=== PATIENT | female | born 1955 | race Caucasian/White ===

== ENCOUNTER 2022-09-03 20:39 | Emergency (ER) | payer MEDICARE, SELFPAY ==
[2022-09-03 20:40] VITALS: BP 152/86; PULSE 93; RESP 15; TEMP 36.4; O2SAT 99; BMI 21.6
--- NOTE | 2022-09-03 21:03 | RAD_ITS ---
STUDY: X-RAY CHEST REASON FOR EXAM: Female, 66 years old. Adductive cough x1 month and wheezing TECHNIQUE: PA and lateral views of the chest. COMPARISON: None. FINDINGS: Alveolar opacity in the upper right lung consistent with pneumonia or atelectasis. There is no demonstrated pleural abnormality. Normal size heart. Normal mediastinum and zofia. Normal visualized pulmonary arteries. Normal visualized aortic arch and descending thoracic aorta. Normal visualized thoracic spine. Normal visualized ribs, clavicles, and shoulders. There is no demonstrated abnormality of the visualized soft tissue structures of the upper abdomen. RAD/Chest PA and Lateral IMPRESSION: Right upper lobe pneumonia or atelectasis. Correlation with CT the chest with contrast would be useful to exclude right hilar mass or endobronchial lesion. Electronically Signed: Rito Reyes MD at 22:00 EDT ,
--- NOTE | 2022-09-03 21:04 | EX.ED.DYSGE1 ---
HPI History of Present Illness Chief Complaint: Lower Extremity Injury Detail of Chief Complaint: Patient has 2 complaints. Please read HPI narrative Informant: patient Onset/Context/Timing Onset: Weeks (Left ankle pain x1 week) and Month(s) (And factious symptoms x1 month) Context: Sudden Onset Timing: Continuous and Waxes and wanes Quality: Pain in left ankle and productive cough with wheezing Location: Left ankle and respiratory Current Severity: Mild Maximum Severity: Severe Worsened by: Palpation, and weightbearing Relieved by: Nothing Associated Symptoms Associated Symptoms: Swelling since patient has been less mobile. Narrative Narrative: Patient is a 66-year-old woman who is a smoker and has history of COPD. She presents with 2 complaints. The main reason she presents because of right ankle pain. She has no recall of injury. She denies history of gout or pseudogout. She is not on a diuretic. She denies fever, chills night sweats. She denies symptoms of claudication. She localizes the pain to the left ankle area. She states initially her ankle was swollen. She now has swelling of her foot. She denies calf pain. She states she has not been feeling well for a month. She has a smoker. She does have a cough productive of white creamy sputum. She also endorses dyspnea, dyspnea on exertion and wheezing. She has not smoked as much the last day or 2. She also endorses rhinorrhea, congestion postnasal drainage. She denies sore throat. She does complain of bifrontal headache. Denies double vision, blurred vision or loss of vision. She denies photophobia. Denies neck pain or neck stiffness. She denies nausea, vomiting or diarrhea. She denies dysuria, frequency, urgency or hematuria. Prior similar symptoms: Yes (COPD yes ankle pain no) Recent Illness/Hospitalization: No [facility] Medical History COPD (chronic obstructive pulmonary disease) Fibromyalgia Neuropathy Home Medications albuterol sulfate 90 mcg/actuation aerosol inhaler (Ventolin HFA) inhalation 09/03/22 [History Last Taken Unknown] budesonide-formoterol HFA 160 mcg-4.5 mcg/actuation aerosol inhaler (Symbicort) inhalation 09/03/22 [History Last Taken Unknown] cyanocobalamin (vitamin B-12) 1,000 mcg tablet mcg 09/03/22 [History Last Taken Unknown] doxycycline monohydrate 100 mg capsule 100 mg PO BID #10 CAPSULES 09/03/22 [Rx Last Taken Unknown] ergocalciferol (vitamin D2) 1,250 mcg (50,000 unit) capsule (Vitamin D2) 09/03/22 [History Last Taken Unknown] hydrocodone-acetaminophen 5-325mg 5mg-325mg 1 tab PO Q6H PRN PRN Pain 3 days #10 TABLETS 09/03/22 [Rx Last Taken Unknown] prednisone 20 mg tablet 60 mg PO DAILY #15 TABLETS 09/03/22 [Rx Last Taken Unknown] Allergy/AdvReac Type Severity Reaction Status Date / Time meperidine [From Demerol] Allergy Hives Verified 09/03/22 20:44 aspirin [ASA] AdvReac Upset Verified 09/03/22 20:44 Stomach Social History (Updated 09/03/22 @ 21:[address] Britton Rahman MD) household members: none Smoking Status: Current every day smoker tobacco type: cigarettes substance use type: does not use ROS ROS ED Constitutional Constitutional ED: Reports fever(s) and subjective; Denies chills, sweats or weight loss Eyes Eyes: Denies blurry vision, change in vision or diplopia ENT ENT ED: Reports rhinorrhea; Denies ear pain or sore throat Cardiovascular Cardiovascular: Denies chest pain, orthopnea, palpitations, paroxysmal nocturnal dyspnea or racing heartbeat Respiratory/Chest Respiratory/Chest: Reports cough, dyspnea, dyspnea on exertion and sputum; Denies orthopnea or paroxysmal nocturnal dyspnea Gastrointestinal Gastrointestinal: Denies abdominal pain, constipation, diarrhea, melena, nausea or vomiting Genitourinary Genitourinary ED: Denies dysuria, hematuria or urinary frequency Musculoskeletal Musculoskeletal: Reports other Details: Left ankle pain and swelling as documented in the HPI narrative ; Denies arthralgias, back pain, myalgias or neck pain Integumentary Denies Abrasions or rash Neurologic Neurologic: Reports headache(s); Denies paresthesias or weakness Endocrine Endocrinology: Denies cold intolerance or heat intolerance Hematologic/Lymphatic Hematologic/Lymphatic: Reports systems reviewed and no addt'l complaints, except as documented EXAM Physical Exam Const Vital Signs: 09/03/22 20:40 09/03/22 21:13 09/03/22 21:13 Temperature 97.6 F L Temperature Source Temporal Pulse Rate 93 94 Respiratory Rate 15 18 20 H Respiratory Effort Normal Short of Breath Respiratory Depth Normal Respiratory Pattern Normal Normal Blood Pressure 152/86 H Blood Pressure Mean 108 Pulse Ox 99 97 Oxygen Delivery Method Room Air Room Air Positive well developed, cachectic and unkempt; Negative for obese or contractures General Appearance ED: unkempt, well developed, cachectic and NAD; Negative for contractures, cyanotic, diaphoretic or pallor Nutritional Appearance: cachectic; Negative for obese HEENT Reports moist mucous membranes HEENT Narrative: Head is atraumatic no cephalic. Patient reports mild discomfort with tapping over the frontal sinuses. Ears normal. TMs normal. Nares reveal slight clear drainage. Posterior pharynx reveals mild postnasal drainage. Uvula midline. There is no erythema or exudate the posterior pharynx. There is no deviation tongue with protrusion. Eyes PERRL and EOMs intact bilaterally General Eye ED: Negative for pale conjunctiva or scleral icterus Neck no lymphadenopathy, supple and no JVD Neck Narrative: Trachea is midline. There is no inspiratory expiratory stridor. Resp normal respiratory effort and No clear to auscultation bilaterally Auscultation: wheezes expiratory wheezes and throughout (Expiratory wheezing that is scattered throughout.) Cardio regular rate, regular rhythm, S1 normal heart sound, S2 normal heart sound and no murmurs GI normal to inspection, nondistended, normoactive bowel sounds, non-tender, non-distended and no masses; Negative for hepatosplenomegaly Back/Spine no CVA tenderness Thoracic Spine / Upper Back: Negative for thoracic spinal tenderness Lumbar Spine / Lower Back: Negative for lumbar spinal tenderness Extremity Extremity Narrative: There is swelling of the left ankle. There is pain palpation over the lateral aspect of the foot. There is no point tenderness over the base of the fifth metatarsal. There is no fluctuance of the joint. She does complain of pain with palpation over the lateral malleolus. There is minimal pain over the medial malleolus. There is some pain noted over the deltoid ligament. There is no lax with drawer testing. There is no calf tenderness. There is no leg vein distention, palpable cords or pain along the distribution deep venous system. DP and PT pulse are palpable. She does have stigmata of peripheral arterial disease noted. Neuro oriented x3, CN's II-XII intact bilaterally and no sensory deficits noted Motor Exam: strength 5/5 throughout Psych mental status grossly normal Appearance: unkempt Skin no rashes or lesions noted and no wounds General Skin Exam: Negative for jaundice or pallor MDM MDM MDM Narrative Medical decision making narrative: Patient with left ankle pain and swelling. X-ray was ordered per nurse protocol prior to be seen. Agree. Doubt crystal induced or pyogenic arthritis. She had minimal pain with passive dorsi and plantar flexion. There is soft tissue swelling laterally and there is significant tenderness to palpation. Suspected lymphedema and is due to decreased activity because of the pain. Because patient has respiratory symptoms with history of COPD and wheezing chest x-ray was ordered and she was treated with DuoNeb and albuterol. Patient is wheeze free after aerosol treatments. She received 1 DuoNeb and 1 albuterol. Patient was informed that her chest x-ray is abnormal. She was informed that the radiologist recommended a CAT scan. CAT scan with IV contrast was ordered. CT was performed interpreted radiologist. The abnormalities were due to scarring. There is no evidence of pneumonia, mass or endobronchial abnormality. Patient was discharged with prescription for doxycycline and prednisone. Lab Data Attestation: I reviewed the patient's lab results. Lab results narrative: CBC is unremarkable. Comprehensive metabolic panel is. Labs: Laboratory Results - last 24 hr 09/03/22 09/03/22 09/03/22 21:11 21:11 22:10 WBC 6.6 RBC 4.07 L Hgb 15.1 H Hct 43.6 MCV 107.1 H MCH 37.1 H MCHC 34.6 RDW Std Deviation 47.3 H RDW Coeff of [place] 11.9 Plt Count 207 MPV 9.2 Immature Gran % (Auto) 0.500 Neut % (Auto) 66.9 Lymph % (Auto) 18.3 L [place] % (Auto) 11.7 H Eos % (Auto) 2.3 Baso % (Auto) 0.3 Absolute Neuts (auto) 4.4 Absolute Lymphs (auto) 1.20 Nucleated RBC % 0 Sodium 135 L Potassium 4.1 Chloride 101 Carbon Dioxide 27.0 Anion Gap 7 BUN 4 L Creatinine 0.60 Estim Creat Clear Calc 54.32 Est GFR (MDRD) Af Amer 126 Est GFR (MDRD) Non-Af 104 BUN/Creatinine Ratio 6.6 L Glucose 107 H Calcium 9.0 Total Bilirubin 0.60 AST 15 ALT 17 Alkaline Phosphatase 85 Total Protein 7.1 Albumin 3.5 Globulin 3.6 Albumin/Globulin Ratio 1.0 Urine Color Straw Urine Clarity Clear Urine pH 7.0 Ur Specific [place] 1.005 Urine Protein Negative Urine Glucose (UA) Normal Urine Ketones Negative Urine Occult Blood 150 H Urine Nitrite Negative Urine Bilirubin Negative Urine Urobilinogen Normal Ur Leukocyte Esterase 25 H Urine RBC 0 SEEN Urine WBC 0 SEEN Ur Squamous Epith Cells 0-5 SEEN Urine Bacteria RARE Urine Mucus 0 SEEN Radiography Chest X-Ray - ED: 2 View (2 view chest x-ray reveals haziness/infiltrate in the right upper lobe. There appears to be a perihilar mass. Cardiac silhouette and size unremarkable. There is no effusion noted. [place] structures appear normal. Will await interpretation by radiologist. This is independently reviewed and inter) and Read by ED Physician (X-ray of the ankle was obtained. 3 views were obtained. There is lateral soft tissue swelling noted consistent with a ligamentous injury. There is no widening of the mortise. There is no evidence of fracture to the lateral medial malleolus. There is no fracture noted at the base of the fifth me) Diagnostic Testing: Clinical Impression(s) from Imaging Studies Chest X-Ray 09/03/22 21:03 IMPRESSION: Right upper lobe pneumonia or atelectasis. Correlation with CT the chest with contrast would be useful to exclude right hilar mass or endobronchial lesion. Electronically Signed: Rito Reyes MD at 22:00 EDT Reading Location ID and State: [id number] / [employer] Tel , Service support , Ankle X-Ray 09/03/22 21:44 IMPRESSION: No acute fracture or dislocation. Lateral soft tissue swelling consistent with ligamentous injury Electronically Signed: Rito Reyes MD at 21:59 EDT Reading Location ID and State: [id number] / [employer] Tel , Service support , Chest CT 09/03/22 22:07 IMPRESSION: Emphysema with bilateral apical scarring but no pneumonia, atelectasis, nodule, or mass. Electronically Signed: Rito Reyes MD at 22:52 EDT , Discharge Plan Triage Chief Complaint: Lower Extremity Injury ED Provider: Britton Rahman Dx/Rx/DC Orders Clinical Impression: Acute exacerbation of COPD with asthma, Acute exacerbation of chronic bronchitis, Apical lung scarring, Sprain of anterior talofibular ligament of left ankle, Hypertension Instructions: ED COPD Flare, ED Ankle Sprain (Adult) Prescriptions: New hydrocodone-acetaminophen [hydrocodone-acetaminophen] 5-325 mg tablet 1 tab PO Q6H PRN PRN (Reason: Pain) 3 Days Qty: 10 0RF prednisone 20 mg tablet 60 mg PO DAILY Qty: 15 0RF doxycycline monohydrate 100 mg capsule 100 mg PO BID Qty: 10 0RF No Action cyanocobalamin (vitamin B-12) 1,000 mcg tablet Label Comments: take 1 tablet by mouth once daily ergocalciferol (vitamin D2) [Vitamin D2] 1,250 mcg (50,000 unit) capsule Label Comments: take 1 capsule by mouth every week albuterol sulfate [Ventolin HFA] 90 mcg/actuation HFA aerosol inhaler INHALATION Label Comments: inhale 2 puffs INTO THE LUNGS four times a day if needed for wheezing budesonide-formoterol [Symbicort] 160-4.5 mcg/actuation HFA aerosol inhaler INHALATION Label Comments: INHALE TWO PUFFS BY MOUTH AND INTO THE LUNGS TWICE A DAY Primary Care Provider: Roxy Zamudio,Out of Referrals: Roxy Zamudio,Out of [Primary Care Provider] - 3-5 Days Activity Restrictions/Additional Instructions: Take medication as prescribed Apply ice to your left ankle 6-10 times a day Wear a flat soled shoe until you are pain-free Disposition Disposition: Home, Self Care
[2022-09-03 21:13] VITALS: PULSE 94; RESP 18; RESP 20; O2SAT 97
[2022-09-03] MEDS: Ipratropium/Albuterol Sulfate 3 ML AMPUL.NEB INHALATION (21:13)
[2022-09-03 21:17] LABS: Absolute Neutrophil Count 4.4 X10^3/uL (2.0-7.7); Basophil# 0.02 X10^3/uL; Basophil% 0.3 % (0-1); Eosinophil# 0.15 X10^3/uL; Eosinophils% 2.3 % (0-5); Hematocrit 43.6 % (37-47); Hemoglobin 15.1 g/dL (12.0-15.0); Lymphocyte % 18.3 % (19-41); Mean Corp Hgb Conc 34.6 g/dL (32-36); Mean Corpuscular Hgb 37.1 pg (27.0-32.0); Mean Corpuscular Volume 107.1 fL (81-99); Mean Platelet Vol. 9.2 fl (6.2-12.0); Monocyte# 0.77 X10^3/uL; Monocyte% 11.7 % (0-10); NRBC Flagged by Analyzer 0 % (0-5); Neutrophil # 4.39 X10^3/uL (2.7-7.7); Neutrophil % 66.9 % (47-70); Platelet Count 207 K/mm3 (150-450); RBC Distribution Width CV 11.9 % (11.6-14.6); RBC Distribution Width SD 47.3 fl (35.1-43.9); Red Blood Count 4.07 M/mm3 (4.2-5.4); White Blood Count 6.6 K/mm3 (4.4-11.0)
[2022-09-03] MEDS: Albuterol 2.5 MG/3 ML VIAL.NEB. INHALATION (21:21)
[2022-09-03 21:33] LABS: AST(SGOT) 15 U/L (15-37); Alanine Aminotransfer ALT/SGPT 17 U/L (13-56); Albumin, Serum 3.5 g/dL (3.2-5.0); Alkaline Phosphatase 85 U/L (45-117); Anion Gap 7 (5-15); BUN 4 mg/dL (7-18); BUN/Creat Ratio 6.6 RATIO (10-20); Chloride 101 mmol/L (98-107); EST Glomerular Filtration Rate 104 mL/min (>60); Est Glom Filt Rate - Afr Amer 126 mL/min (>60); Estimated Creatinine Clearance 54.32 ml/min; Globulin 3.6 g/dL (2.2-4.2); Glucose 107 mg/dL (74-106); Potassium 4.1 mmol/L (3.5-5.1); Protein, Total 7.1 g/dL (6.4-8.2); Sodium Level 135 mmol/L (136-145)
--- NOTE | 2022-09-03 21:36 | CPS ---
x1 Albuterol given to pt. in ER as well. Pt. politely declined further breathing tx.'s at this time, but she did say she'd notify her nurse if she feels as if she needs additional tx.'s.
--- NOTE | 2022-09-03 21:44 | RAD_ITS ---
STUDY: X-RAY - LEFT ANKLE REASON FOR EXAM: Female, 66 years old. INJURY TECHNIQUE: 3 view(s) of the ankle. COMPARISON: None. FINDINGS: Normal visualized distal tibia and fibula. Normal medial and lateral malleoli. Normal tibiotalar articulation and ankle mortise. Normal visualized talus and calcaneus. The visualized subtalar, talonavicular, calcaneocuboid and tarsal articulations are normal. Lateral soft tissue swelling consistent with ligamentous injury. RAD/Ankle min 3 Views IMPRESSION: No acute fracture or dislocation. Lateral soft tissue swelling consistent with ligamentous injury Electronically Signed: Rito Reyes MD at 21:59 EDT ,
--- NOTE | 2022-09-03 22:07 | CT_ITS ---
INDICATION: Hilar mass, endobronchial mass EXAMINATION: CT CHEST WITH CONTRAST - CT Chest W/ Contrast Injection TECHNIQUE: Helically acquired images were obtained of the chest following IV contrast. A radiation dose optimization technique was used for this scan. IV Contrast dosage and agent: COMPARISON: Chest x-ray earlier today FINDINGS: LUNGS, PLEURA AND LARGE AIRWAYS: Moderate bilateral apical scarring. Mild emphysema with subpleural blebs. No noncalcified nodule or mass. No pleural effusion or thickening. No pneumothorax. THYROID: No thyroid lesions. HEART AND PERICARDIUM: Heart size is normal. No pericardial effusion. VESSELS: Thoracic aorta is not dilated. No aortic dissection. No obvious central pulmonary embolism although this study was not performed with the pulmonary embolism protocol. MEDIASTINUM AND DAVID: No mediastinal or hilar adenopathy. Esophagus is unremarkable. No hiatal hernia. UPPER ABDOMEN: No acute pathology. BONES: No suspicious lytic or blastic abnormality. CT/Chest WITH Contrast IMPRESSION: Emphysema with bilateral apical scarring but no pneumonia, atelectasis, nodule, or mass. Electronically Signed: Rito Reyes MD at 22:52 EDT ,
[2022-09-03 22:17] LABS: Mucous, Urine 0 SEEN /hpf (<or=2+); Red Blood Cells-Urine 0 SEEN /hpf (0-5); White Blood Cells 0 SEEN /hpf (0-5)
[2022-09-03 22:20] LABS: Color, Urine Straw (Yellow); Glucose, Dipstick Normal (Normal); Ketone-Dipstick Negative (Negative); Leukocyte Esterase-Dipstick 25 /ul (Negative); Nitrite-Dipstick Negative (Negative); Occult Blood-Urine 150 /ul (Negative); Protein-Dipstick Negative (Negative); Specific Gravity, Urine 1.005 (1.002-1.030); Urine Bilirubin Dipstick Negative (Negative); Urine Clarity Clear (Clear); Urine Urobilinogen Normal (Normal)
[2022-09-03 22:28] LABS: Bacteria RARE /hpf (None Seen); Squamous Epithelial Cells - UA 0-5 SEEN /hpf (5-10)
[2022-09-03 23:40] VITALS: BP 138/75; PULSE 100; RESP 20; O2SAT 98
== END 2022-09-03 23:46 | disposition home or self-care (01) ==
PROVIDERS: Emergency Provider Emergency Medicine; Visit Provider Emergency Medicine
DX: S93.492A Sprain of other ligament of left ankle, initial encounter (principal); J44.1 Chronic obstructive pulmonary disease with (acute) exacerbation; I10 Essential (primary) hypertension; F17.210 Nicotine dependence, cigarettes, uncomplicated; R09.81 Nasal congestion; M79.89 Other specified soft tissue disorders; Z79.52 Long term (current) use of systemic steroids; X58.XXXA Exposure to other specified factors, initial encounter
CPT/HCPCS: 71046; 71260; 73610; 80053; 81001; 85025; 94640; 99251; 99285; Q9967; A4216; G0463

== ENCOUNTER 2023-01-28 19:50 | Emergency (ER) | payer MEDICARE, SELFPAY ==
[2023-01-28 19:51] VITALS: BP 148/72; PULSE 76; RESP 18; TEMP 36.6; O2SAT 98; BMI 24.5
--- NOTE | 2023-01-28 20:02 | CT_ITS ---
EXAM: CT ANGIOGRAPHY OF THE RIGHT LOWER EXTREMITY WITH INTRAVENOUS CONTRAST CLINICAL INDICATION: right leg pain, swelling after Stent placement TECHNIQUE: Helically acquired angiography images of the right lower extremity with intravenous contrast using angiographic protocol. This CT exam was performed using one or more of the following dose reduction techniques: automated exposure control, adjustment of the mA and/or kV according to patient size, and/or use of iterative reconstruction technique. This report was created using [employer] report generation technology. MIP reconstructed images were created and reviewed. CONTRAST: IV 100mL [id number] COMPARISON: None. FINDINGS: VASCULATURE: RIGHT FEMORAL/POPLITEAL ARTERIES: There is a 5.8 x 3.9 cm low density fluid collection anterior to the right common femoral artery. There is a small amount of gas also present which may represent a postoperative seroma. There is no active bleeding. No occlusion or significant stenosis. RIGHT CALF/FOOT ARTERIES: There is three-vessel runoff to the right ankle. LOWER EXTREMITY: BONES/JOINTS: See above. SOFT TISSUES: Unremarkable. No soft tissue swelling or gas. No radiopaque foreign body. OTHER FINDINGS: There is a patent femoropopliteal graft. CT/CTA LWR EXTR W/O & W/DYE IMPRESSION: Femoral-popliteal graft which is patent. There is a low-density fluid collection in the soft tissues at the level of the right common femoral artery which may represent a seroma. There is no bleeding identified. There is three-vessel runoff to the right ankle. Electronically Signed: Akil Steen MD at 21:53 EST ,
--- NOTE | 2023-01-28 20:04 | EDS_ITS ---
HPI History of Present Illness Chief Complaint: Lower Extremity Injury Detail of Chief Complaint: Right leg pain and swelling Informant: patient Narrative Narrative: Patient presents to the emergency department via EMS with right leg pain and swelling that she noticed again yesterday. Patient states that 2 days ago she was discharged from [facility] where she had surgery for a stent placement to her right leg for history of peripheral artery disease. Patient currently on Xarelto. She denies any fall or injury. Yesterday she started noticing increased pain and increased swelling to the leg. Patient denies chest pain or shortness of breath. Patient rates her pain a 10 out of 10. [facility] Medical History (Updated 01/28/23 @ 22:[address] Sabine Singh, ) COPD (chronic obstructive pulmonary disease) Fibromyalgia GERD (gastroesophageal reflux disease) Neuropathy Other emphysema PAD (peripheral artery disease) PVD (peripheral vascular disease) Skin ulcer of toe of right foot, limited to breakdown of skin Tobacco use disorder Home Medications ergocalciferol (vitamin D2) 1,250 mcg (50,000 unit) capsule (Vitamin D2) 50,000 unit PO QWEEK 09/03/22 [History Last Taken Unknown] albuterol sulfate 90 mcg/actuation aerosol inhaler (Ventolin HFA) 2 puff inhalation 4X/DAY PRN shortness of breath or wheezing 01/04/23 [History Last Taken Unknown] ammonium lactate 12 % lotion 1 applic topical DAILY 01/04/23 [History Last Taken Unknown] budesonide-formoterol HFA 160 mcg-4.5 mcg/actuation aerosol inhaler (Symbicort) 2 puff inhalation BID 01/04/23 [History Last Taken Unknown] cyanocobalamin (vitamin B-12) 1,000 mcg capsule 1,000 mcg PO DAILY 01/04/23 [History Last Taken Unknown] escitalopram oxalate 10 mg tablet (Lexapro) 10 mg PO DAILY 01/04/23 [History Last Taken Unknown] nicotine (polacrilex) 4 mg buccal lozenge 4 mg buccal Q2H PRN nicotine cravings 01/04/23 [History Last Taken Unknown] aspirin 81 mg tablet,delayed release 81 mg PO DAILY 01/09/23 [History Last Taken Unknown] ropinirole 1 mg tablet 1 mg PO QHS 01/09/23 [History Last Taken Unknown] calcium carbonate 500 mg capsule 500 mg PO TID 01/28/23 [History Last Taken Unknown] oxycodone 5 mg tablet 5 mg PO Q8H PRN Pain 01/28/23 [History Last Taken Unknown] rivaroxaban 2.5 mg tablet 2.5 mg PO BID 01/28/23 [History Last Taken Unknown] Allergy/AdvReac Type Severity Reaction Status Date / Time meperidine [From Demerol] Allergy Hives Verified 01/28/23 19:53 ibuprofen AdvReac Intermediate Upset Verified 01/28/23 19:53 Stomach aspirin [ASA] AdvReac Upset Verified 01/28/23 19:53 Stomach Family History (Updated 01/09/23 @ 13:27 by Cat Mendez) Father Cancer lung Mother Cancer Surgical History History of right salpingo-oophorectomy Hx of appendectomy Social History (Updated 01/09/23 @ 13:26 by Cat Mendez) household members: none Smoking Status: Former smoker alcohol intake: current alcohol intake frequency: a few times a month substance use type: does not use caffeine: Yes Type: tea ROS ROS ED Review of Systems ROS Unobtainable: other Constitutional Constitutional ED: Reports lethargy; Denies chills, fever(s), sweats or weight loss Eyes Eyes: Denies blurry vision, change in vision or diplopia ENT ENT ED: Denies rhinorrhea or sore throat Cardiovascular Cardiovascular: Denies chest pain, orthopnea or racing heartbeat Respiratory/Chest Respiratory/Chest: Denies cough, dyspnea, dyspnea on exertion, orthopnea or sputum Gastrointestinal Gastrointestinal: Denies abdominal pain, diarrhea, nausea or vomiting Genitourinary Genitourinary ED: Denies dysuria, hematuria or urinary frequency Musculoskeletal Musculoskeletal: Reports other Details: Right leg pain and swelling ; Denies arthralgias, back pain, myalgias or neck pain Integumentary Denies abscess, Abrasions or rash Neurologic Neurologic: Denies headache(s) or weakness Psychiatric Psychiatric: Denies anxiety, depression or suicidal thoughts Endocrine Endocrinology: Denies polydipsia, polyphagia or polyuria Hematologic/Lymphatic Hematologic/Lymphatic: Denies easy bleeding, easy bruising or lymphadenopathy Allergic/Immunologic Allergic/Immunologic ED: Denies mouth swelling, tongue swelling or urticaria EXAM Physical Exam Const Vital Signs: 01/28/23 19:51 Temperature 97.8 F Temperature Source Oral Pulse Rate 76 Respiratory Rate 18 Blood Pressure 148/72 H Blood Pressure Mean 97 Pulse Ox 98 Oxygen Delivery Method Room Air Positive well nourished and well developed General Appearance ED: well developed and NAD HEENT Reports TM's clear and moist mucous membranes normocephalic and atraumatic; Negative for trauma or tenderness Tympanic Membrane ED: Yes TM's clear Eyes PERRL and EOMs intact bilaterally General Eye ED: Negative for pale conjunctiva or scleral icterus Neck no lymphadenopathy, supple and no JVD General: Negative for tenderness Chest Wall inspection of chest normal and palpation of chest normal Chest: Negative for tenderness Resp normal respiratory effort and clear to auscultation bilaterally Effort and Inspection: Negative for respiratory distress or pain with movement Auscultation: Negative for rhonchi, wheezes or diminished lung sounds Cardio regular rate, regular rhythm, S1 normal heart sound, S2 normal heart sound and no murmurs Peripheral Pulses: pulses 2+ throughout GI normal to inspection, nondistended, normoactive bowel sounds, soft to palpation, non-tender, non-distended and no masses Back/Spine no CVA tenderness and no thoracic nor lumbar tenderness Extremity Extremity Narrative: Right leg-patient has a well-healing incision in the right groin as well as anterior right thigh without evidence of drainage or cellulitic changes. Patient has edema from about mid thigh down to the foot. I am able to palpate a popliteal as well as dorsal pedal and posterior tibial pulse. Foot is pink and warm to the touch. General Extremety ED: Negative for edema General Extremity: Negative for edema Neuro oriented x3, CN's II-XII intact bilaterally, no sensory deficits noted and gait normal Sensorium / Orientation: awake, alert, oriented to person, oriented to place and oriented to time Motor Exam: strength 5/5 throughout and strength abnormal Psych mental status grossly normal Skin no rashes or lesions noted and no wounds MDM MDM MDM Narrative Medical decision making narrative: Patient presents with severe right leg pain after having popliteal bypass at [facility] on 22 January. Since yesterday she has had increasing pain and swelling. I do not have ultrasound available tonight to obtain venous Doppler to rule out DVT. Patient currently anticoagulated on Xarelto. Basic labs were performed CBC with differential which was unremarkable and chemistries which were unremarkable. Patient had a CTA with runoffs of the right lower extremity which did show a patent graft with good runoff all the way down to the ankle. While in the department she was medicated with Dilaudid and Zofran. At this time etiology of her pain is unclear. I discussed case with [facility] and they recommended that we transfer to their emergency department to be evaluated by their vascular surgeons. She will likely require a venous Doppler as well which I cannot get here tonight. Patient will also require further pain control. Patient was accepted by emergency room physician Dr. Saab. The transfer line spoke with Dr. Prater who was on-call for vascular surgery and it was Dr. Prater's recommendation that patient be seen in the emergency department. History & Record Review Discussion w/independent historian: Patient Lab Data Labs: Laboratory Results - last 24 hr 01/28/23 01/28/23 20:10 20:10 WBC 6.0 RBC 3.43 L Hgb 12.2 Hct 35.8 L MCV 104.4 H MCH 35.6 H MCHC 34.1 RDW Std Deviation 46.7 H RDW Coeff of [place] 12.1 Plt Count 243 MPV 9.7 Immature Gran % (Auto) 0.300 Neut % (Auto) 63.3 Lymph % (Auto) 18.7 L [place] % (Auto) 14.5 H Eos % (Auto) 2.7 Baso % (Auto) 0.5 Absolute Neuts (auto) 3.8 Absolute Lymphs (auto) 1.12 Nucleated RBC % 0 Sodium 134 L Potassium 3.7 Chloride 100 Carbon Dioxide 27.0 Anion Gap 7 BUN 5 L Creatinine 0.59 Estim Creat Clear Calc 53.56 Est GFR (MDRD) Af Amer 130 Est GFR (MDRD) Non-Af 107 BUN/Creatinine Ratio 8.5 L Glucose 98 Calcium 8.9 Radiography Diagnostic Testing: Clinical Impression(s) from Imaging Studies Lower Extremity CTA 01/28/23 20:02 IMPRESSION: Femoral-popliteal graft which is patent. There is a low-density fluid collection in the soft tissues at the level of the right common femoral artery which may represent a seroma. There is no bleeding identified. There is three-vessel runoff to the right ankle. Electronically Signed: Akil Steen MD at 21:53 EST , Discharge Plan Triage Chief Complaint: Lower Extremity Injury ED Provider: Sabine Singh Dx/Rx/DC Orders Clinical Impression: Post-op pain, Right leg swelling Prescriptions: No Action ammonium lactate 12 % lotion 1 applic topical DAILY cyanocobalamin (vitamin B-12) 1,000 mcg capsule 1,000 mcg PO DAILY escitalopram oxalate [Lexapro] 10 mg tablet 10 mg PO DAILY nicotine (polacrilex) 4 mg lozenge 4 mg buccal Q2H PRN (Reason: nicotine cravings) aspirin 81 mg tablet,delayed release (DR/EC) 81 mg PO DAILY ropinirole 1 mg tablet 1 mg PO QHS ergocalciferol (vitamin D2) [Vitamin D2] 1,250 mcg (50,000 unit) capsule 50,000 unit PO QWEEK Label Comments: take 1 capsule by mouth every week albuterol sulfate [Ventolin HFA] 90 mcg/actuation HFA aerosol inhaler 2 puff INHALATION 4X/DAY PRN (Reason: shortness of breath or wheezing) Label Comments: inhale 2 puffs INTO THE LUNGS four times a day if needed for wheezing budesonide-formoterol [Symbicort] 160-4.5 mcg/actuation HFA aerosol inhaler 2 puff INHALATION BID Label Comments: INHALE TWO PUFFS BY MOUTH AND INTO THE LUNGS TWICE A DAY calcium carbonate 500 mg Capsule 500 mg PO TID oxycodone [Roxicodone] 5 mg Tablet 5 mg PO Q8H PRN (Reason: Pain) rivaroxaban 2.5 mg Tablet 2.5 mg PO BID Primary Care Provider: IAN OHARA Referrals: [facility] Doctor,Out of [Non-Staff] - Disposition Disposition: DC/Tx to Another Type of HCF
[2023-01-28] MEDS: Ondansetron 4 MG/2 ML Vial IV (20:11)
[2023-01-28] MEDS: HYDROcodone Bitartrate/Apap 5/325 Tablet PO (20:11)
[2023-01-28 20:23] LABS: Absolute Lymphocyte Count 1.12 X10^3/uL (0.83-4.51); Absolute Neutrophil Count 3.8 X10^3/uL (2.0-7.7); Basophil# 0.03 X10^3/uL; Basophil% 0.5 % (0-1); Eosinophil# 0.16 X10^3/uL; Eosinophils% 2.7 % (0-5); Hematocrit 35.8 % (37-47); Hemoglobin 12.2 g/dL (12.0-15.0); Lymphocyte # 1.12 X10^3/ul (0.83-4.51); Lymphocyte % 18.7 % (19-41); Mean Corp Hgb Conc 34.1 g/dL (32-36); Mean Corpuscular Hgb 35.6 pg (27.0-32.0); Mean Corpuscular Volume 104.4 fL (81-99); Mean Platelet Vol. 9.7 fl (6.2-12.0); Monocyte# 0.87 X10^3/uL; Monocyte% 14.5 % (0-10); NRBC Flagged by Analyzer 0 % (0-5); Neutrophil % 63.3 % (47-70); Platelet Count 243 K/mm3 (150-450); RBC Distribution Width CV 12.1 % (11.6-14.6); RBC Distribution Width SD 46.7 fl (35.1-43.9); Red Blood Count 3.43 M/mm3 (4.2-5.4)
[2023-01-28 20:47] LABS: Anion Gap 7 (5-15); BUN 5 mg/dL (7-18); BUN/Creat Ratio 8.5 RATIO (10-20); Calcium,Total 8.9 mg/dL (8.5-10.1); Chloride 100 mmol/L (98-107); Creatinine, Serum 0.59 mg/dL (0.55-1.02); EST Glomerular Filtration Rate 107 mL/min (>60); Est Glom Filt Rate - Afr Amer 130 mL/min (>60); Estimated Creatinine Clearance 53.56 ml/min; Glucose 98 mg/dL (74-106); Potassium 3.7 mmol/L (3.5-5.1); Sodium Level 134 mmol/L (136-145)
[2023-01-28 22:08] VITALS: O2SAT 96
[2023-01-28 22:48] VITALS: BP 124/65; PULSE 70; RESP 18; TEMP 36.5; O2SAT 96
[2023-01-29] VITALS: BP 127/55
--- NOTE | 2023-01-29 00:21 | NURSING ---
Report called to [facility] ED to [facility] by this RN at this time. Squad loading pt on [facility] for transport.
== END 2023-01-29 00:28 | disposition other institution (70) ==
PROVIDERS: Emergency Provider Emergency Medicine; PCP Family Medicine; Visit Provider Emergency Medicine
DX: G89.18 Other acute postprocedural pain (principal); J44.9 Chronic obstructive pulmonary disease, unspecified; M79.604 Pain in right leg; M79.89 Other specified soft tissue disorders; Z87.891 Personal history of nicotine dependence; Z79.01 Long term (current) use of anticoagulants; Z86.79 Personal history of other diseases of the circulatory system; Z98.890 Other specified postprocedural states
CPT/HCPCS: 73706; 80048; 85025; 96374; 99285; J7030; Q9967; A4216; J2405